=== PATIENT | male | born 1970 | race Caucasian/White ===

== ENCOUNTER 2017-06-22 00:51 | Emergency (ER) | payer MEDICARE ==
[2017-06-22 01:02] VITALS: BP 119/66; PULSE 87; RESP 18; TEMP 100.1
[2017-06-22] MEDS ORDERED: ACETAMINOPHEN TAB 500 MG TAB PO STA (01:40)
[2017-06-22] MEDS ORDERED: IBUPROFEN 600 MG TAB PO STA (01:40)
[2017-06-22 01:41] LABS: Appearance,Urine Clear (Clear); Bacteria,Urine Rare /hpf; Bilirubin,Urine Negative (Negative); Blood,Urine Negative (Negative); Color,Urine Light Yellow; Glucose,Urine (UA) Negative (Negative); Ketones,Urine Negative (Negative); Leukocyte Esterase,Urine Moderate (Negative); Nitrite,Urine Negative (Negative); Protein,Urine Negative (Negative); Specific Gravity,Urine 1.003 (1.001-1.035); Squamous Epithelial Cell,Urine <1 /hpf (0-4); Urobilinogen,Urine <2.0 mg/dL (<2.0); WBC,Urine 9 /hpf (0-5)
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
[2017-06-22] MEDS ORDERED: CIPROFLOXACIN HCL 250 MG TAB PO STA (01:55)
== END 2017-06-22 02:16 | disposition home or self-care (01) ==
LOC: EC 00:51
DX: N39.0 Urinary tract infection, site not specified (principal); R33.9 Retention of urine, unspecified; Z79.899 Other long term (current) drug therapy
CPT/HCPCS: 51702; 81001; 87077; 87086; 87186; 99284

== ENCOUNTER 2021-07-13 07:07 | Emergency (ER) | payer MEDICARE ==
[2021-07-13 07:22] VITALS: RESP 18
[2021-07-13] MEDS ORDERED: ACETAMINOPHEN TAB 500 MG TAB PO STA (07:33)
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
[2021-07-13 08:39] LABS: INR 1.1 (<1.2); Partial Thromboplastin Time 25.8 sec (22.0-30.0); Prothrombin Time 11.4 sec (9.0-12.0)
[2021-07-13 08:44] LABS: ALT 12 U/L (4-49); AST 22 U/L (17-59); African American GFR (CKD) >90 (>60 ml/min/1.73 sqM); Alkaline Phosphatase 79 U/L (38-126); Anion Gap 6 mmol/L; Blood Urea Nitrogen 19 mg/dL (9-20); Calcium 8.6 mg/dL (8.4-10.2); Carbon Dioxide 27 mmol/L (22-30); Chloride 103 mmol/L (98-107); Glucose 103 mg/dL (74-99); Non-African American GFR(CKD) >90 (>60 ml/min/1.73 sqM); Potassium 3.9 mmol/L (3.5-5.1); Sodium 136 mmol/L (137-145); Total Bilirubin 1.1 mg/dL (0.2-1.3); Total Protein 7.3 g/dL (6.3-8.2)
--- NOTE | 2021-07-13 08:54 | XR ---
EXAMINATION TYPE: XR chest 2V DATE OF EXAM: 07/13/2021 COMPARISON: NONE HISTORY: Shortness of breath and fever today. TECHNIQUE: Frontal and lateral views of the chest are obtained. FINDINGS: There is retrocardiac opacity. Right lung is clear. No significant pleural effusion or pn eumothorax seen bilaterally. The cardiac silhouette size is mildly enlarged. Surgical changes of the cervical spine is partially imaged. Lateral view shows suggestion of severe pectus excavatum deformit y. Correlate clinically. IMPRESSION: Mild cardiomegaly with posterior left lower lobe patchy acute infiltrate and/or atelecta sis.
[2021-07-13 09:12] LABS: Basophils # (A) 0.1 k/uL (0-0.2); Basophils % (A) 0 %; Eosinophils # (A) 0.2 k/uL (0-0.7); Eosinophils % (A) 1 %; HGB 14.2 gm/dL (13.0-17.5); Lymphocytes # (A) 0.7 k/uL (1.0-4.8); Lymphocytes % (A) 5 %; MCH 31.3 pg (25.0-35.0); MCHC 33.1 g/dL (31.0-37.0); MCV 94.7 fL (80.0-100.0); Mean Platelet Volume 10.1; Monocytes # (A) 0.4 k/uL (0-1.0); Monocytes % (A) 3 %; Neutrophils # (A) 11.8 k/uL (1.3-7.7); Neutrophils % (A) 90 %; Platelet Count 103 k/uL (150-450); RBC 4.54 m/uL (4.30-5.90); RDW 13.7 % (11.5-15.5); WBC 13.2 k/uL (3.8-10.6)
[2021-07-13] MEDS ORDERED: cefTRIAXone IN SWFI 1,000 MG/10 ML SYRINGE IVP STA ×2 (09:40→11:20)
[2021-07-13 09:49] VITALS: TEMP 98.6
[2021-07-13 10:50] LABS: Appearance,Urine Clear (Clear); Bilirubin,Urine Negative (Negative); Blood,Urine Negative (Negative); Color,Urine Yellow; Glucose,Urine (UA) Negative (Negative); Ketones,Urine Trace (Negative); Leukocyte Esterase,Urine Small (Negative); Mucus,Urine Few /hpf; Nitrite,Urine Negative (Negative); PH, Urine 5.5 (5.0-8.0); Protein,Urine Trace (Negative); RBC,Urine <1 /hpf (0-5); Specific Gravity,Urine 1.027 (1.001-1.035); Squamous Epithelial Cell,Urine 1 /hpf (0-4); Urobilinogen,Urine <2.0 mg/dL (<2.0); WBC,Urine 7 /hpf (0-5)
[2021-07-13 11:30] VITALS: BP 108/59; PULSE 72
== END 2021-07-13 11:53 | disposition home or self-care (01) ==
LOC: EC 07:07
DX: J18.9 Pneumonia, unspecified organism (principal); Z20.822 Contact with and (suspected) exposure to COVID-19
CPT/HCPCS: 36415; 93005; 85379; 83880; 80053; 83605; 84484; 85025; 85610; 85730; 81001; 87635; 71046; 99285; 96374; 96376; J0696

== ENCOUNTER 2021-11-11 13:32 | Emergency (ER) | payer MEDICARE ==
[2021-11-11 13:42] VITALS: BP 107/65; RESP 18
[2021-11-11] MEDS ORDERED: SODIUM CHLORIDE 0.9% 500 ML 500 ML IV STA (13:57)
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
[2021-11-11 14:22] LABS: Basophils % (A) 1 %; Eosinophils # (A) 0.4 k/uL (0-0.7); Eosinophils % (A) 7 %; HCT 45.6 % (39.0-53.0); HGB 15.5 gm/dL (13.0-17.5); Lymphocytes # (A) 1.2 k/uL (1.0-4.8); Lymphocytes % (A) 21 %; MCH 31.5 pg (25.0-35.0); MCHC 33.9 g/dL (31.0-37.0); MCV 92.7 fL (80.0-100.0); Mean Platelet Volume 10.2; Monocytes # (A) 0.4 k/uL (0-1.0); Monocytes % (A) 6 %; Neutrophils # (A) 3.7 k/uL (1.3-7.7); Neutrophils % (A) 64 %; RBC 4.92 m/uL (4.30-5.90); RDW 13.6 % (11.5-15.5); WBC 5.8 k/uL (3.8-10.6)
[2021-11-11 14:31] LABS: ALT 13 U/L (4-49); AST 44 U/L (17-59); African American GFR (CKD) >90 (>60 ml/min/1.73 sqM); Albumin 4.7 g/dL (3.5-5.0); Alkaline Phosphatase 67 U/L (38-126); Anion Gap 10 mmol/L; Blood Urea Nitrogen 13 mg/dL (9-20); Calcium 8.4 mg/dL (8.4-10.2); Carbon Dioxide 23 mmol/L (22-30); Chloride 101 mmol/L (98-107); Glucose 99 mg/dL (74-99); Non-African American GFR(CKD) >90 (>60 ml/min/1.73 sqM); Potassium 5.2 mmol/L (3.5-5.1); Sodium 134 mmol/L (137-145); Total Bilirubin 1.4 mg/dL (0.2-1.3)
[2021-11-11 15:37] LABS: Platelet Count 94 k/uL (150-450)
--- NOTE | 2021-11-11 16:16 | US ---
EXAMINATION TYPE: US kidneys/renal and bladder DATE OF EXAM: 11/11/2021 COMPARISON: NONE CLINICAL HISTORY: Urinary retention. Patient unable to void since last night. Patient was scanned in his motorized chair. Patient does self cath. EXAM MEASUREMENTS: Right Kidney: 9.5 x 4.6 x 4.4 cm Left Kidney: 9.9 x 4.2 x 5.3 cm Right Kidney: No hydronephrosis or masses seen Left Kidney: mild hydronephrosis seen Bladder: severely distended. Echogenic debris layering dependently without internal color Doppler fl ow areas seen within bladder Bilateral Jets not seen There is no evidence for hydronephrosis at this point in time. No nephrolithiasis is seen. No tea s are identified. IMPRESSION: 1. Distended urinary bladder with echogenic debris layering dependently. Correlate with urinalysis c onsider Berg catheterization. 2. Questionable left right hydronephrosis versus extrarenal pelvis.
[2021-11-11] MEDS ORDERED: ACETAMINOPHEN TAB 500 MG TAB PO STA (17:40)
[2021-11-11 18:24] LABS: Appearance,Urine Clear (Clear); Bacteria,Urine Occasional /hpf; Bilirubin,Urine Negative (Negative); Blood,Urine Negative (Negative); Color,Urine Light Yellow; Glucose,Urine (UA) Negative (Negative); Ketones,Urine Negative (Negative); Leukocyte Esterase,Urine Large (Negative); Mucus,Urine Rare /hpf; Nitrite,Urine Negative (Negative); PH, Urine 6.5 (5.0-8.0); Protein,Urine Negative (Negative); RBC,Urine 2 /hpf (0-5); Specific Gravity,Urine 1.013 (1.001-1.035); Squamous Epithelial Cell,Urine <1 /hpf (0-4); Urobilinogen,Urine <2.0 mg/dL (<2.0); WBC,Urine 25 /hpf (0-5)
[2021-11-11] MEDS ORDERED: CEPHALEXIN 500 MG CAP PO STA (18:41)
[2021-11-11 18:57] VITALS: PULSE 90; TEMP 98.7
== END 2021-11-11 18:56 | disposition home or self-care (01) ==
LOC: EC 13:32
DX: R33.9 Retention of urine, unspecified (principal)
CPT/HCPCS: 36415; 51701; 76770; 80053; 81001; 85025; 87077; 87086; 87186; 99283

== ENCOUNTER 2021-11-19 18:10 | Emergency (ER) | payer MEDICARE ==
[2021-11-19 18:26] VITALS: BP 101/61; PULSE 83; RESP 20; TEMP 98.7
--- NOTE | 2021-11-19 18:51 | ED ---
General Adult HPI - General Chief complaint: Recheck/Abnormal Lab/Rx Stated complaint: catheter problems Time Seen by Provider: 11/19/21 18:32 Source: patient, RN notes reviewed Mode of arrival: ambulatory Limitations: no limitations - History of Present Illness Initial comments: This is a pleasant 51-year-old male who presents emergency department complaining of urinary retention. Patient was seen here on the and treated for urinary retention. Patient was unable to self catheter. Subsequently had diagnostic workup done to include ultrasound. Patient had indwelling Berg catheter placed. Patient was placed on cephalexin which was switched to a different antibiotic the next day when the urine culture showed enterococcus faecalis. Patient has been taking the antibiotic appropriately. However he took the Berg catheter out this morning on his own accord. Patient states she has been unable to self cath since then. Patient has an appointment with Dr. Chambers on Saturday. No other current complaints other than pressure in the bladder area. No headache, no fever or chills, no changes in vision or hearing, no sore throat or difficulty with speech, no neck pain, no chest pain or shortness of breath, no abdominal pain, no nausea or vomiting, no changes inbowel movements, no numbness or tingling, no extremity pain, no skin rashes or lesions. - Related Data Home Medications Medication Instructions Recorded Confirmed Baclofen [Lioresal] 20 mg PO TID 11/21/15 06/22/17 Multivitamin [Men's Multi-Vitamin] 1 tab PO DAILY 11/21/15 06/22/17 Oxybutynin Chloride [Ditropan] 10 mg PO TID 11/21/15 06/22/17 Pregabalin [Lyrica] 100 mg PO BID 11/21/15 06/22/17 Sertraline [Zoloft] 100 mg PO BID 11/21/15 06/22/17 Previous Rx's Medication Instructions Recorded Ciprofloxacin HCl [Cipro] 500 mg PO Q12HR #20 tablet 11/21/15 Phenazopyridine HCl [Pyridium] 100 mg PO TID PRN #6 tab 11/21/15 Ciprofloxacin HCl [Cipro] 500 mg PO Q12HR 10 Days tab 06/22/17 Azithromycin [Zithromax Tri-Marcio] 500 mg PO DAILY #3 tab 07/13/21 Cephalexin [Keflex] 500 mg PO Q12HR 7 Days #14 cap 11/11/21 Allergies Allergy/AdvReac Type Severity Reaction Status Date / Time No Known Allergies Allergy Verified 11/19/21 18:26 Review of Systems ROS Statement: Those systems with pertinent positive or pertinent negative responses have been documented in the HPI. ROS Other: All systems not noted in ROS Statement are negative. 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 Vital signs reviewed. No distress. Limitations: no limitations General appearance: alert, in no apparent distress Head exam: Present: atraumatic, normocephalic, normal inspection Eye exam: Present: normal appearance, PERRL, EOMI. Absent: scleral icterus, conjunctival injection, periorbital swelling ENT exam: Present: normal exam, mucous membranes moist Neck exam: Present: normal inspection. Absent: tenderness, meningismus, lymphadenopathy Respiratory exam: Present: normal lung sounds bilaterally. Absent: respiratory distress, wheezes, rales, rhonchi, stridor Cardiovascular Exam: Present: regular rate, normal rhythm, normal heart sounds. Absent: systolic murmur, diastolic murmur, rubs, gallop, clicks GI/Abdominal exam: Present: soft, normal bowel sounds. Absent: distended, tenderness, guarding, rebound, rigid Extremities exam: Present: normal inspection. Absent: tenderness Back exam: Present: normal inspection Neurological exam: Present: alert, oriented X3, CN II-XII intact Psychiatric exam: Present: normal affect, normal mood Skin exam: Present: warm, dry, intact, normal color. Absent: rash Course Vital Signs 11/19/21 18:24 Temperature 98.7 F Pulse Rate 83 Respiratory 20 Rate Blood Pressure 101/61 O2 Sat by Pulse 96 Oximetry Medical Decision Making - Medical Decision Making Berg catheter be replaced. Patient does not appear to be ill or toxic otherwise. We'll have the patient follow-up with the urologist on Saturday as planned. Indwelling Berg catheter remain in place until then. The patient finish his antibiotics and follow-up with urologist on Saturday as planned. Patient concurs with this treatment plan. All questions answered. Patient was told to return to the ER for any signs or symptoms worsen. Told to return immediately if any other problems arise. All questions answered. Treatment plan discussed. Patient in agreement Every effort has been made to ensure accuracy of this dictation. However, due to the limitations of electronic medical records and dictation devices, errors in charting still occur. Field Foreman, Dr. Desai Disposition Clinical Impression: Urinary retention Narrative: History of chronic urinary retention with history of self-catheterization, currently on antibiotics for Enterococcus faecalis Disposition: HOME SELF-CARE Condition: Good Additional Instructions: The Berg catheter in until recheck with the urologist. Return to the ER immediately if any symptoms worsen, new symptoms arise, or any other problems develop. Is patient prescribed a controlled substance at d/c from ED?: No Referrals: Keon Chambers MD [STAFF PHYSICIAN] - 11/22/21 Time of Disposition: 19:41
== END 2021-11-19 20:00 | disposition home or self-care (01) ==
LOC: EC 18:10
DX: R33.9 Retention of urine, unspecified (principal)

== ENCOUNTER → 2022-05-02 | Outpatient (CLI) | payer MEDICARE ==
[2022-05-02 19:06] LABS: Basophils # (A) 0.06 X 10*3/uL (0.00-0.10); Basophils % (A) 1.2 %; Eosinophils # (A) 0.44 X 10*3/uL (0.04-0.35); Eosinophils % (A) 8.8 %; HCT 39.1 % (39.6-50.0); HGB 12.9 g/dL (13.0-17.0); Immature Grans, Automated 0.2 %; Lymphocytes # (A) 1.22 X 10*3/uL (0.90-5.00); Lymphocytes % (A) 24.5 %; MCH 30.6 pg (27.0-32.0); MCV 92.9 fL (80.0-97.0); Mean Platelet Volume 11.4 fL (9.5-12.2); Monocytes # (A) 0.32 X 10*3/uL (0.20-1.00); Monocytes % (A) 6.4 %; NRBC Per 100 WBC 0 /100 WBCS (0.0-0.0); Neutrophils # (A) 2.93 X 10*3/uL (1.80-7.70); Neutrophils % (A) 58.9 %; Platelet Count 131 X 10*3/uL (140-440); RBC 4.21 X 10*6/uL (4.40-5.60); RDW 13.2 % (11.5-14.5); WBC 4.98 X 10*3/uL (4.50-10.00)
[2022-05-02 19:36] LABS: African American GFR (CKD) 134.1 (60.0-200.0); BUN/Creat Ratio 16.11 Ratio (12.00-20.00); Calcium 8.7 mg/dL (8.7-10.3); Carbon Dioxide 26.2 mmol/L (20.0-27.5); Non-African American GFR(CKD) 115.7 (60.0-200.0); Potassium 4.8 mmol/L (3.5-5.5)
[2022-05-02 19:39] LABS: Appearance,Urine Cloudy (Clear); Bilirubin,Urine Negative (Negative); Blood,Urine Small (Negative); Color,Urine Yellow (Yellow); Ketones,Urine Negative (Negative); Nitrite,Urine Positive (Negative); PH, Urine 7.5 (5.0-8.0); Specific Gravity,Urine 1.013 (1.001-1.030); Urobilinogen,Urine 0.2 (0.2,1.0)
[2022-05-02 19:50] LABS: Bacteria,Urine 3+ /HPF (None Seen)
== END | disposition home or self-care (01) ==
LOC: LABPAT 13:51
PROVIDERS: ATTEND Urology
DX: Z01.812 Encounter for preprocedural laboratory examination (principal); N31.9 Neuromuscular dysfunction of bladder, unspecified; R33.9 Retention of urine, unspecified
CPT/HCPCS: 80048; 81001; 85025; 87086

== ENCOUNTER 2022-05-09 07:36 | Day surgery (SDC) | payer MEDICARE ==
--- NOTE | 2022-05-08 13:50 | P.GSHP ---
History of Present Illness H&P Date: 05/08/22 51 yo male with a ngb secondary to quadriplegia. He has been on cic for a while but it is becoming increasingly difficult He has a urethral barry that is much easier to maintain. We discussed contiuing with that versus a sp tube. He comes for an sp tube. - Constitutional Constitutional: Denies chills, Denies fever - EENT Eyes: denies blurred vision, denies pain Ears, nose, mouth and throat: Denies headache, Denies sore throat - Cardiovascular Cardiovascular: Denies chest pain, Denies shortness of breath - Respiratory Respiratory: Denies cough, Denies 7 - Gastrointestinal Gastrointestinal: Denies abdominal pain, Denies diarrhea, Denies nausea, Denies vomiting - Genitourinary (Female) Genitourinary: Denies dysuria, Denies hematuria - Genitourinary (Male) Genitourinary: Denies dysuria, Denies hematuria - Musculoskeletal Musculoskeletal: Denies myalgias - Integumentary Integumentary: Denies pruritus, Denies rash - Neurological Neurological: Denies numbness, Denies weakness - Psychiatric Psychiatric: Denies anxiety, Denies depression - Endocrine Endocrine: Denies fatigue, Denies weight change Past Medical History Past Medical History: No Reported History Additional Past Medical History / Comment(s): 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 trouble inserting catheter. History of Any Multi-Drug Resistant Organisms: None Reported Past Surgical History: Orthopedic Surgery Additional Past Surgical History / Comment(s): neck fusion , left humerus kristina insertion, charlene filter to prevent clots Past Anesthesia/Blood Transfusion Reactions: No Reported Reaction Smoking Status: Never smoker - Past Family History Father Family Medical History: No Reported History Mother Additional Family Medical History / Comment(s): non hodgkins lymphoma Medications and Allergies Home Medications Medication Instructions Recorded Confirmed Type Baclofen [Lioresal] 20 mg PO TID 11/21/15 05/07/22 History Multivitamin [Men's Multi-Vitamin] 1 tab PO DAILY 11/21/15 05/07/22 History Oxybutynin Chloride [Ditropan] 10 mg PO TID 11/21/15 05/07/22 History Pregabalin [Lyrica] 100 mg PO BID 11/21/15 05/07/22 History Sertraline [Zoloft] 100 mg PO BID 11/21/15 05/07/22 History Allergies Allergy/AdvReac Type Severity Reaction Status Date / Time No Known Allergies Allergy Verified 05/07/22 09:52 Surgical - Exam - General well developed, well nourished, no distress - Eyes PERRL - ENT no hearing loss - Neck no masses - Respiratory normal expansion, normal respiratory effort - Abdomen Abdomen: soft, non tender - Genitourinary indwellling urethral catheter - Neurologic wheel chair. Contractures and limited movement c/w c5-6 quadriplegia. - Psychiatric oriented to time, oriented to person, oriented to place, speech is normal, memory intact Assessment and Plan Assessment: Impresion: NGB, urine retention Plan: Cystoscopy with suprapubic cystostomy
[~2022-05-09 07:36] MED LIST: AMPICILLIN 1,000 MG in SODIUM CHLORIDE 0.9% 50 ML IVPB PRN; DEXAMETHASONE SOD PHOSPHATE 4 MG/ML 1 ML VIAL IV ONE; GENTAMICIN 120 MG in SODIUM CHLORIDE 0.9% 100 ML IVPB PRN; HYDROmorphone 0.5 MG/0.5 ML SYRINGE IVP PRN; LACTATED RINGERS 1,000 ML IV SCH; MIDAZOLAM 2 MG/2 ML VIAL IV PRN; ONDANSETRON 4 MG/2 ML VIAL IVP ONE; SCOPOLAMINE 1 MG/72 HR PATCH TRANSDERM ONE
[2022-05-09] MEDS ORDERED: ONDANSETRON 4 MG/2 ML VIAL IVP ONE (08:42)
[2022-05-09] MEDS ORDERED: DEXAMETHASONE SOD PHOSPHATE 4 MG/ML 1 ML VIAL IVP ONE (08:43)
[2022-05-09] MEDS ORDERED: fentaNYL (PF) 50 MCG/ML 2 ML AMP ONE (09:23)
[2022-05-09] MEDS ORDERED: LIDOCAINE 2% INJ 20 MG/ML (2 ML VIAL) ONE (09:23)
[2022-05-09] MEDS ORDERED: MIDAZOLAM 2 MG/2 ML VIAL ONE (09:23)
[2022-05-09] MEDS ORDERED: PROPOFOL 10 MG/ML 20 ML VIAL IV ONE (09:23)
[2022-05-09] MEDS ORDERED: LACTATED RINGERS 1,000 ML IV ONE (09:56)
--- NOTE | 2022-05-09 10:10 | P.OP ---
Date of Procedure: 05/09/22 Preoperative Diagnosis: Neurogenic bladder, urine retention, quadriplegia Postoperative Diagnosis: Same Procedure(s) Performed: Cystoscopy with suprapubic cystostomy Anesthesia: ROSETTA Surgeon: Keon Chambers Pathology: none sent Condition: stable Disposition: PACU Indications for Procedure: Patient is 51. He is a quadriplegic for many years. He has been on intermittent catheterization which is becoming increasingly difficult. He has an indwelling urethral catheter. We discussed options. The indwelling catheter is much more convenient for his quadriplegia. We discussed a suprapubic tube a. He come for this placement. Description of Procedure: Patient brought to the operating suite. He is given a general anesthesia. This urethral catheters removed. A curved notched 18-Telugu Deloris sound is introduced into the bladder. Is tented to the anterior bladder wall. A small incision is made in the suprapubic skin over the sound. I then cut down to the sound pop the sound through the bladder and anterior abdominal wall. I then place a 2-0 silk through the notch in the Deloris sound as well as through the Berg catheter. I tied this down. I then pull the notch sound through the urethra back through the urethral meatus and the urethral catheter follows the sound. I I removed the sound and slowly pulled the Berg catheter back into the bladder insufflated in the balloon in the bladder. This is done under direct vision with the cystoscope. The bladder irrigates freely. I secured the catheter with 2 2-0 silk's to the skin. It is dressed appropriately. I irrigate the catheter freely. Impression successful placement of suprapubic tube under cystoscopic guidance. The patient tolerated the procedure well. Blood loss was negligible
[2022-05-09 10:38] VITALS: TEMP 96.8
[2022-05-09 11:27] VITALS: PULSE 58
[2022-05-09 11:39] VITALS: BP 135/77; RESP 14
== END 2022-05-09 12:08 | disposition home or self-care (01) ==
LOC: OR 07:36
PROVIDERS: ATTEND Urology
DX: N31.9 Neuromuscular dysfunction of bladder, unspecified (principal); G82.50 Quadriplegia, unspecified; F12.90 Cannabis use, unspecified, uncomplicated; Z79.899 Other long term (current) drug therapy
CPT/HCPCS: 52281; C2627; J2250; J1100; J2405; J3010; J1580; J0290; J2704; J2001

== ENCOUNTER 2022-05-12 21:37 | Emergency (ER) | payer OTHER, MEDICARE ==
[2022-05-12 21:47] VITALS: TEMP 98.3
[2022-05-12] MEDS ORDERED: SODIUM CHLORIDE 0.9% 1,000 ML IV STA (22:17)
[2022-05-12] MEDS ORDERED: MORPHINE SULFATE 4 MG/ML SYRINGE IV STA (22:17)
--- NOTE | 2022-05-12 22:18 | ED ---
Abdominal Pain HPI - General Chief Complaint: Abdominal Pain Stated Complaint: Abdominal Pain Time Seen by Provider: 05/12/22 21:45 Source: patient, EMS Mode of arrival: EMS Limitations: physical limitation - History of Present Illness Initial Comments: 51-year-old male with past medical history of quadriplegia presents to the emergency room with right lower quadrant abdominal pain. He had a suprapubic catheter inserted on the seventh. States that he was doing well after surgery. Has not required any pain medication. Today the patient began having right lower quadrant abdominal pain. His last bowel movement was Saturday. He usually requires enemas. States that he has been doing enemas and has had a small amount of stool output however nothing significant. He has had adequate drainage in his Berg catheter without hematuria. No fevers. Pain is graded as a 7 out of 10. Denies any redness, swelling or discharge from the surgical site. No other alleviating, precipitating or modifying factors - Related Data Home Medications Medication Instructions Recorded Confirmed Baclofen [Lioresal] 20 mg PO TID 11/21/15 05/09/22 Multivitamin [Men's Multi-Vitamin] 1 tab PO DAILY 11/21/15 05/09/22 Oxybutynin Chloride [Ditropan] 10 mg PO TID 11/21/15 05/09/22 Pregabalin [Lyrica] 100 mg PO BID 11/21/15 05/09/22 Sertraline [Zoloft] 100 mg PO BID 11/21/15 05/09/22 Allergies Allergy/AdvReac Type Severity Reaction Status Date / Time sulfamethoxazole Allergy Rash/Hives Verified 05/12/22 21:46 [From Bactrim] trimethoprim [From Bactrim] Allergy Rash/Hives Verified 05/12/22 21:46 Review of Systems ROS Statement: Those systems with pertinent positive or pertinent negative responses have been documented in the HPI. ROS Other: All systems not noted in ROS Statement are negative. 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 trouble inserting catheter. History of Any Multi-Drug Resistant Organisms: None Reported Past Surgical History: Orthopedic Surgery Additional Past Surgical History / Comment(s): neck fusion, left humerus kristina insertion, charlene filter to prevent clots Past Anesthesia/Blood Transfusion Reactions: No Reported Reaction Past Psychological History: No Psychological Hx Reported Smoking Status: Never smoker Past Alcohol Use History: None Reported Past Drug Use History: None Reported - Past Family History Father Family Medical History: No Reported History Mother Additional Family Medical History / Comment(s): non hodgkins lymphoma General Exam Limitations: physical limitation General appearance: alert, in no apparent distress Head exam: Present: atraumatic, normocephalic, normal inspection Respiratory exam: Present: normal lung sounds bilaterally. Absent: respiratory distress, wheezes, rales, rhonchi, stridor Cardiovascular Exam: Present: regular rate, normal rhythm, normal heart sounds. Absent: systolic murmur, diastolic murmur, rubs, gallop, clicks GI/Abdominal exam: Present: tenderness (suprapubic and rlq. suprapubic catheter appears to be in appropriate position. no redness or drainage. abdomen soft) Extremities exam: Present: other (muscle atrophy bilateral lower extremities) Neurological exam: Present: alert Skin exam: Present: warm, dry, intact, normal color. Absent: rash Course Vital Signs 05/12/22 05/12/22 05/12/22 21:41 22:38 23:52 Temperature 98.3 F Pulse Rate 64 64 73 Respiratory 18 18 16 Rate Blood Pressure 115/75 124/75 120/66 O2 Sat by Pulse 95 96 97 Oximetry Medical Decision Making - Medical Decision Making Upon arrival patient was placed into room 10. A thorough history and physical exam was performed. IV access was established. Patient was given 4 mg of morphine for pain control and a liter bolus of normal saline. Laboratory studies are conducted and reviewed. Sodium low at 125. Urinalysis only has rare bacteria. CT the abdomen and pelvis is performed which demonstrates thickening of the bladder however no other acute process. Normal appendix. These results are discussed with the patient. I did discuss the low sodium level and recommended admission for overnight observation and sodium replacement. Patient reports that his pain is mostly gone at this time and would prefer to go home. I did discuss diagnosis, differential and treatment options. Patient will be discharged. Instructed to follow up with his primary care doctor for repeat sodium drop. Also needs to follow up with Dr. Santoyo as he is postop. Return to the emergency room for any new or worsening symptoms. Patient was agreeable to treatment plan he was discharged home in stable condition - Lab Data Result diagrams: 05/12/22 22:30 05/12/22 22:30 Lab Results 05/12/22 05/12/22 05/12/22 Range/Units 22:30 22:30 22:30 WBC 4.5 (3.8-10.6) k/uL RBC 4.05 L (4.30-5.90) m/uL Hgb 12.7 L (13.0-17.5) gm/dL Hct 35.5 L (39.0-53.0) % MCV 87.6 (80.0-100.0) fL MCH 31.3 (25.0-35.0) pg MCHC 35.8 (31.0-37.0) g/dL RDW 12.7 (11.5-15.5) % Plt Count 112 L (150-450) k/uL MPV 8.8 Neutrophils % 63 % Lymphocytes % 19 % Monocytes % 6 % Eosinophils % 8 % Basophils % 1 % Neutrophils # 2.9 (1.3-7.7) k/uL Lymphocytes # 0.9 L (1.0-4.8) k/uL Monocytes # 0.3 (0-1.0) k/uL Eosinophils # 0.4 (0-0.7) k/uL Basophils # 0.1 (0-0.2) k/uL Sodium 125 L (137-145) mmol/L Potassium 4.0 (3.5-5.1) mmol/L Chloride 96 L (98-107) mmol/L Carbon Dioxide 23 (22-30) mmol/L Anion Gap 6 mmol/L BUN 11 (9-20) mg/dL Creatinine 0.54 L (0.66-1.25) mg/dL Est GFR (CKD-EPI)AfAm >90 (>60 ml/min/1.73 sqM) Est GFR (CKD-EPI)NonAf >90 (>60 ml/min/1.73 sqM) Glucose 90 (74-99) mg/dL Plasma Lactic Acid Prince (0.7-2.0) mmol/L Calcium 8.0 L (8.4-10.2) mg/dL Total Bilirubin 1.0 (0.2-1.3) mg/dL AST 24 (17-59) U/L ALT 21 (4-49) U/L Alkaline Phosphatase 57 (38-126) U/L Total Protein 6.2 L (6.3-8.2) g/dL Albumin 3.6 (3.5-5.0) g/dL Lipase 28 (23-300) U/L Urine Color Yellow Urine Appearance Clear (Clear) Urine pH 5.5 (5.0-8.0) Ur Specific [place] 1.015 (1.001-1.035) Urine Protein Trace H (Negative) Urine Glucose (UA) Negative (Negative) Urine Ketones 2+ H (Negative) Urine Blood Moderate H (Negative) Urine Nitrite Negative (Negative) Urine Bilirubin Negative (Negative) Urine Urobilinogen <2.0 (<2.0) mg/dL Ur Leukocyte Esterase Moderate H (Negative) Urine RBC 3 (0-5) /hpf Urine WBC 6 H (0-5) /hpf Ur Squamous Epith Cells <1 (0-4) /hpf Urine Bacteria Rare H (None) /hpf Urine Mucus Rare H (None) /hpf 05/12/22 Range/Units 22:30 WBC (3.8-10.6) k/uL RBC (4.30-5.90) m/uL Hgb (13.0-17.5) gm/dL Hct (39.0-53.0) % MCV (80.0-100.0) fL MCH (25.0-35.0) pg MCHC (31.0-37.0) g/dL RDW (11.5-15.5) % Plt Count (150-450) k/uL MPV Neutrophils % % Lymphocytes % % Monocytes % % Eosinophils % % Basophils % % Neutrophils # (1.3-7.7) k/uL Lymphocytes # (1.0-4.8) k/uL Monocytes # (0-1.0) k/uL Eosinophils # (0-0.7) k/uL Basophils # (0-0.2) k/uL Sodium (137-145) mmol/L Potassium (3.5-5.1) mmol/L Chloride (98-107) mmol/L Carbon Dioxide (22-30) mmol/L Anion Gap mmol/L BUN (9-20) mg/dL Creatinine (0.66-1.25) mg/dL Est GFR (CKD-EPI)AfAm (>60 ml/min/1.73 sqM) Est GFR (CKD-EPI)NonAf (>60 ml/min/1.73 sqM) Glucose (74-99) mg/dL Plasma Lactic Acid [place] 1.2 (0.7-2.0) mmol/L Calcium (8.4-10.2) mg/dL Total Bilirubin (0.2-1.3) mg/dL AST (17-59) U/L ALT (4-49) U/L Alkaline Phosphatase (38-126) U/L Total Protein (6.3-8.2) g/dL Albumin (3.5-5.0) g/dL Lipase (23-300) U/L Urine Color Urine Appearance (Clear) Urine pH (5.0-8.0) Ur Specific [place] (1.001-1.035) Urine Protein (Negative) Urine Glucose (UA) (Negative) Urine Ketones (Negative) Urine Blood (Negative) Urine Nitrite (Negative) Urine Bilirubin (Negative) Urine Urobilinogen (<2.0) mg/dL Ur Leukocyte Esterase (Negative) Urine RBC (0-5) /hpf Urine WBC (0-5) /hpf Ur Squamous Epith Cells (0-4) /hpf Urine Bacteria (None) /hpf Urine Mucus (None) /hpf Disposition Clinical Impression: Abdominal pain Disposition: HOME SELF-CARE Condition: Stable Instructions (If sedation given, give patient instructions): Abdominal Pain (ED) Additional Instructions: Please alternate taking Motrin and Tylenol 4 hours for pain control. Follow up with your doctor and please return should you have any new or worsening symptoms. They should recheck your sodium level to ensure this has improved. Is patient prescribed a controlled substance at d/c from ED?: No Referrals: Rafi Castro Jr, [Primary Care Provider] - 1-2 days Time of Disposition: 00:38
[2022-05-12 22:43] LABS: Basophils # (A) 0.1 k/uL (0-0.2); Basophils % (A) 1 %; Eosinophils # (A) 0.4 k/uL (0-0.7); Eosinophils % (A) 8 %; HCT 35.5 % (39.0-53.0); HGB 12.7 gm/dL (13.0-17.5); Lymphocytes # (A) 0.9 k/uL (1.0-4.8); Lymphocytes % (A) 19 %; MCH 31.3 pg (25.0-35.0); MCHC 35.8 g/dL (31.0-37.0); MCV 87.6 fL (80.0-100.0); Mean Platelet Volume 8.8; Monocytes # (A) 0.3 k/uL (0-1.0); Monocytes % (A) 6 %; Neutrophils # (A) 2.9 k/uL (1.3-7.7); Neutrophils % (A) 63 %; Platelet Count 112 k/uL (150-450); RBC 4.05 m/uL (4.30-5.90); RDW 12.7 % (11.5-15.5); WBC 4.5 k/uL (3.8-10.6)
[2022-05-12 22:51] LABS: ALT 21 U/L (4-49); AST 24 U/L (17-59); African American GFR (CKD) >90 (>60 ml/min/1.73 sqM); Albumin 3.6 g/dL (3.5-5.0); Alkaline Phosphatase 57 U/L (38-126); Anion Gap 6 mmol/L; Blood Urea Nitrogen 11 mg/dL (9-20); Carbon Dioxide 23 mmol/L (22-30); Chloride 96 mmol/L (98-107); Glucose 90 mg/dL (74-99); Lipase 28 U/L (23-300); Non-African American GFR(CKD) >90 (>60 ml/min/1.73 sqM); Sodium 125 mmol/L (137-145); Total Protein 6.2 g/dL (6.3-8.2)
[2022-05-12 22:53] LABS: Appearance,Urine Clear (Clear); Bacteria,Urine Rare /hpf; Bilirubin,Urine Negative (Negative); Blood,Urine Moderate (Negative); Color,Urine Yellow; Glucose,Urine (UA) Negative (Negative); Ketones,Urine 2+ (Negative); Leukocyte Esterase,Urine Moderate (Negative); Mucus,Urine Rare /hpf; Nitrite,Urine Negative (Negative); PH, Urine 5.5 (5.0-8.0); Protein,Urine Trace (Negative); RBC,Urine 3 /hpf (0-5); Specific Gravity,Urine 1.015 (1.001-1.035); Squamous Epithelial Cell,Urine <1 /hpf (0-4); Urobilinogen,Urine <2.0 mg/dL (<2.0); WBC,Urine 6 /hpf (0-5)
[2022-05-12 23:52] VITALS: BP 120/66; PULSE 73; RESP 16
--- NOTE | 2022-05-13 00:12 | CT ---
EXAMINATION TYPE: CT abdomen pelvis w con DATE OF EXAM: 05/12/2022 COMPARISON: None HISTORY: RLQ PAIN CT DLP: 1214.2 mGycm Automated exposure control for dose reduction was used. CONTRAST: Performed with IV Contrast, patient injected with 100 mL of Isovue 300. Images obtained from the diaphragm to the floor of the pelvis with IV contrast. The lung bases show some patchy atelectasis. There is significant pectus excavatum chest deformity. H eart is deviated to the left side due to the pectus deformity. There is no pleural effusion. Liver spleen and stomach appear intact. The bile ducts are not dilated. There are small calcified gal lstones. There is no adrenal mass. Kidneys of normal size. No hydronephrosis. There is satisfactory contrast o pacification of the kidneys. Delayed images show normal renal excretion. There is inferior vena cava filter. There is no retroperitoneal adenopathy. There is suprapubic catheter. There is air in the uri nary bladder with irregular wall thickening. No inguinal hernia. No free fluid in the pelvis. No pelv ic mass. The appendix is medial and posterior and appears normal. There is no ascites or free air. There is no sign of a bowel obstruction. No mesenteric edema. The thoracic and lumbar vertebra. Intact. No compression fracture. The bony pelvis is intact. The hip joints are intact. IMPRESSION: There is some patchy atelectasis at the lung bases. Cholelithiasis. No dilated ducts. No evidence of renal mass or obstruction. Normal appendix. There is mild urinary bladder wall thickening that is suggestive of some degree of c ystitis.
== END 2022-05-13 00:54 | disposition home or self-care (01) ==
LOC: EC 21:37
DX: R10.9 Unspecified abdominal pain (principal); K80.20 Calculus of gallbladder without cholecystitis without obstruction; Z88.2 Allergy status to sulfonamides; Z88.1 Allergy status to other antibiotic agents
CPT/HCPCS: 36415; 80053; 83605; 83690; 85025; 81001; 74177; 99285; 96374; 96361; J2270; Q9967

== ENCOUNTER 2022-08-09 10:34 | Emergency (ER) | payer MEDICARE, OTHER ==
[2022-08-09 10:46] VITALS: RESP 18
[2022-08-09] MEDS ORDERED: SODIUM CHLORIDE 0.9% 500 ML 500 ML IV STA (10:58)
[2022-08-09 11:15] LABS: Basophils # (A) 0.1 k/uL (0-0.2); Basophils % (A) 1 %; Eosinophils # (A) 0.3 k/uL (0-0.7); Eosinophils % (A) 7 %; HCT 41.9 % (39.0-53.0); HGB 14.3 gm/dL (13.0-17.5); Lymphocytes % (A) 25 %; MCH 31.1 pg (25.0-35.0); MCV 91.4 fL (80.0-100.0); Monocytes # (A) 0.2 k/uL (0-1.0); Monocytes % (A) 5 %; Neutrophils # (A) 2.2 k/uL (1.3-7.7); Neutrophils % (A) 59 %; Platelet Count 134 k/uL (150-450); RBC 4.59 m/uL (4.30-5.90); RDW 12.8 % (11.5-15.5); WBC 3.7 k/uL (3.8-10.6)
[2022-08-09 11:28] LABS: Partial Thromboplastin Time 26.8 sec (22.0-30.0); Prothrombin Time 10.7 sec (9.0-12.0)
[2022-08-09 11:33] LABS: ALT 14 U/L (4-49); AST 19 U/L (17-59); African American GFR (CKD) >90 (>60 ml/min/1.73 sqM); Albumin 4.1 g/dL (3.5-5.0); Alkaline Phosphatase 83 U/L (38-126); Anion Gap 7 mmol/L; Blood Urea Nitrogen 15 mg/dL (9-20); Calcium 8.4 mg/dL (8.4-10.2); Carbon Dioxide 28 mmol/L (22-30); Chloride 99 mmol/L (98-107); Glucose 97 mg/dL (74-99); Non-African American GFR(CKD) >90 (>60 ml/min/1.73 sqM); Sodium 134 mmol/L (137-145); Total Bilirubin 0.6 mg/dL (0.2-1.3); Total Protein 6.7 g/dL (6.3-8.2)
--- NOTE | 2022-08-09 11:34 | XR ---
EXAMINATION TYPE: XR chest 2V DATE OF EXAM: 08/09/2022 COMPARISON: 07/13/2021 TECHNIQUE: PA and lateral views submitted. HISTORY: Shortness of breath FINDINGS: The lungs are clear and there is no pneumothorax, pleural effusion, or focal pneumonia. Heart size enlarged and no overt failure. Osseous structures intact. Hyperinflation suggestive of COPD. IVC filt er in the abdomen incidentally noted. Postsurgical changes Cervical spine. Correlate for pectus conge nital deformity. IMPRESSION: 1. COPD and cardiomegaly with no definite acute infiltrate or overt failure. .
--- NOTE | 2022-08-09 13:25 | ED ---
General Adult HPI - General Chief complaint: Shortness of Breath Stated complaint: sob Time Seen by Provider: 08/09/22 10:49 Source: patient, EMS, RN notes reviewed Mode of arrival: EMS Limitations: physical limitation - History of Present Illness Initial comments: 51-year-old male presents emergency department via EMS chief complaint shortness of breath. Patient states he had a large chronic congestion states he cannot move it and which she called EMS. EMS did write a DuoNeb treatment states he feels improved patient's found to be tachycardic at this time but denies any chest pain states he has some mild palpitations. Patient is known paraplegic wheelchair bound denies any prior cardiac lung disease. He states he is using an inhaler in the past which has helped. - Related Data Home Medications Medication Instructions Recorded Confirmed Baclofen [Lioresal] 20 mg PO TID 11/21/15 08/09/22 Multivitamin [Men's Multi-Vitamin] 1 tab PO DAILY 11/21/15 08/09/22 Oxybutynin Chloride [Ditropan] 10 mg PO TID 11/21/15 08/09/22 Pregabalin [Lyrica] 100 mg PO BID 11/21/15 08/09/22 Sertraline [Zoloft] 100 mg PO BID 11/21/15 08/09/22 Previous Rx's Medication Instructions Recorded Albuterol Nebulized [Ventolin 2.5 mg INHALATION Q4H PRN #75 ml 08/09/22 Nebulized] Allergies Allergy/AdvReac Type Severity Reaction Status Date / Time sulfamethoxazole Allergy Rash/Hives Verified 08/09/22 10:52 [From Bactrim] trimethoprim [From Bactrim] Allergy Rash/Hives Verified 08/09/22 10:52 Review of Systems ROS Statement: Those systems with pertinent positive or pertinent negative responses have been documented in the HPI. ROS Other: All systems not noted in ROS Statement are negative. 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 trouble inserting catheter. History of Any Multi-Drug Resistant Organisms: None Reported Past Surgical History: Orthopedic Surgery Additional Past Surgical History / Comment(s): neck fusion, left humerus kristina insertion, charlene filter to prevent clots Past Anesthesia/Blood Transfusion Reactions: No Reported Reaction Past Psychological History: No Psychological Hx Reported Smoking Status: Never smoker Past Alcohol Use History: None Reported Past Drug Use History: None Reported - Past Family History Father Family Medical History: No Reported History Mother Additional Family Medical History / Comment(s): non hodgkins lymphoma General Exam Limitations: no limitations, physical limitation General appearance: alert, in no apparent distress Head exam: Present: atraumatic, normocephalic, normal inspection Eye exam: Present: normal appearance, PERRL, EOMI. Absent: scleral icterus, conjunctival injection, periorbital swelling ENT exam: Present: normal exam, normal oropharynx, mucous membranes moist Neck exam: Present: normal inspection, full ROM. Absent: tenderness, meningismus, lymphadenopathy Respiratory exam: Present: normal lung sounds bilaterally. Absent: respiratory distress, wheezes, rales, rhonchi, stridor Cardiovascular Exam: Present: tachycardia, irregular rhythm, normal heart sounds. Absent: regular rate, normal rhythm, systolic murmur, diastolic murmur, rubs, gallop, clicks GI/Abdominal exam: Present: soft, normal bowel sounds. Absent: distended, tenderness, guarding, rebound, rigid Course Vital Signs 08/09/22 08/09/22 10:37 12:47 Pulse Rate 97 73 Respiratory 18 18 Rate Blood Pressure 101/64 116/66 O2 Sat by Pulse 91 L 94 L Oximetry EKG Findings - EKG Comments: EKG Findings:: EKG performed at 11:006 sinus rhythm rate of 89 AK 173 QRS 110 / QTC 386/432. EKG performed at 10:58 A. fib with RVR rate of 123 QRS 106 QT/QTC 334/407 - EKG Results: EKG: interpreted by [facility] Medical Decision Making - Medical Decision Making Was pt. sent in by a medical professional or institution (, PA, [employer], urgent care, hospital, or residential...) When possible be specific @ -No Did you speak to anyone other than the patient for history (EMS, parent, family, police, friend...)? What history was obtained from this source @ -EMS and family ride past medical history. Did you review nursing and triage notes (agree or disagree)? Why? @ -I reviewed and agree with nursing and triage notes Were old charts reviewed (outside hosp., previous admission, EMS record, old EKG, old radiological studies, urgent care reports/EKG's, residential records)? Report findings @ -No old charts were reviewed Differential Diagnosis (chest pain, altered mental status, abdominal pain women, abdominal pain men, vaginal bleeding, weakness, fever, dyspnea, syncope, headache, dizziness, GI bleed, back pain, seizure, CVA, palpatations, mental health, musculoskeletal)? @ -Differential Dyspnea: Coronary syndrome, arrhythmia, tamponade, asthma, COPD, pulmonary embolism, pneumonia, pneumothorax, pulmonary effusion, anaphylaxis, diabetic ketoacidosis, flailed chest, pulmonary contusion, diaphragmatic rupture, anemia, neuromuscul ar, this is not meant to be an all-inclusive list. e EKG interpreted by me (3pts min.). @ -As above X-rays interpreted by me (1pt min.). @ -Chest x-ray shows no evidence of pneumonia, possible COPD changes CT interpreted by me (1pt min.). @ -None done U/S interpreted by me (1pt. min.). @ -None done What testing was considered but not performed or refused? (CT, X-rays, U/S, labs)? Why? @ -None What meds were considered but not given or refused? Why? @ -None Did you discuss the management of the patient with other professionals (professionals i.e. , PA, [employer], lab, RT, psych nurse, school social worker, soda room operator, teacher, [employer] plans staff officer, case liner)? Give summary @ -Did discuss the case with cardiology do not recommend blood thinners as patient had an episode of defibrillation, resolved and he has no other risk factors. I did update currently primary care physician who recommended patient to be discharged with follow-up in office. Was smoking cessation discussed for >3mins.? @ -No Was critical care preformed (if so, how long)? @ -No Were there social determinants of health that impacted care today? How? (Homelessness, low income, unemployed, alcoholism, drug addiction, transportation, low edu. Level, literacy, decrease access to med. care, [facility], rehab)? @ -No Was there de-escalation of care discussed even if they declined (Discuss DNR or withdrawal of care, Hospice)? DNR status @ -No What co-morbidities impacted this encounter? (DM, HTN, Smoking, COPD, CAD, Cancer, CVA, ARF, Chemo, Hep., AIDS, mental health diagnosis, sleep apnea, morbid obesity)? @ -None Was patient admitted / discharged? Hospital course, mention meds given and route, prescriptions, significant lab abnormalities, going to OR and other pertinent info. @ -Charge patient had increasing congestion which is no ongoing better for the patient. Patient had an episode of facial fibrillation resolved I did discuss case cardiology and PCP patient is safe for discharge patient wants to be discharged was offered admission. Undiagnosed new problem with uncertain prognosis? @ -No Drug Therapy requiring intensive monitoring for toxicity (Heparin, Nitro, Insulin, Cardizem)? @ -No Were any procedures done? @ -No Diagnosis/symptom? @ -A. fib, Acute, or Chronic, or Acute on Chronic? @ -acute Uncomplicated (without systemic symptoms) or Complicated (systemic symptoms)? @ -Uncomplicated Side effects of treatment? @ -No Exacerbation, Progression, or Severe Exacerbation? @ -No Poses a threat to life or bodily function? How? (Chest pain, [place], [place], pneumonia, PE, COPD, DKA, ARF, appy, cholecystitis, CVA, Diverticulitis, Homicidal, Suicidal, threat to staff... and all critical care pts) @ -No Diagnosis/symptom? @ -Congestion Acute, or Chronic, or Acute on Chronic? @ -acute Uncomplicated (without systemic symptoms) or Complicated (systemic symptoms)? @ -uncomplicated Side effects of treatment? @ -none Exacerbation, Progression, or Severe Exacerbation] @ -no Poses a threat to life or bodily function? @ -no - Lab Data Result diagrams: 08/09/22 11:07 08/09/22 11:07 Lab Results 08/09/22 08/09/22 08/09/22 Range/Units 11:07 11:07 11:07 WBC 3.7 L (3.8-10.6) k/uL RBC 4.59 (4.30-5.90) m/uL Hgb 14.3 (13.0-17.5) gm/dL Hct 41.9 (39.0-53.0) % MCV 91.4 (80.0-100.0) fL MCH 31.1 (25.0-35.0) pg MCHC 34.0 (31.0-37.0) g/dL RDW 12.8 (11.5-15.5) % Plt Count 134 L (150-450) k/uL MPV 8.0 Neutrophils % 59 % Lymphocytes % 25 % Monocytes % 5 % Eosinophils % 7 % Basophils % 1 % Neutrophils # 2.2 (1.3-7.7) k/uL Lymphocytes # 1.0 (1.0-4.8) k/uL Monocytes # 0.2 (0-1.0) k/uL Eosinophils # 0.3 (0-0.7) k/uL Basophils # 0.1 (0-0.2) k/uL PT 10.7 (9.0-12.0) sec INR 1.0 (<1.2) APTT 26.8 (22.0-30.0) sec Sodium 134 L (137-145) mmol/L Potassium 4.0 (3.5-5.1) mmol/L Chloride 99 (98-107) mmol/L Carbon Dioxide 28 (22-30) mmol/L Anion Gap 7 mmol/L BUN 15 (9-20) mg/dL Creatinine 0.54 L (0.66-1.25) mg/dL Est GFR (CKD-EPI)AfAm >90 (>60 ml/min/1.73 sqM) Est GFR (CKD-EPI)NonAf >90 (>60 ml/min/1.73 sqM) Glucose 97 (74-99) mg/dL Calcium 8.4 (8.4-10.2) mg/dL Magnesium 2.0 (1.6-2.3) mg/dL Total Bilirubin 0.6 (0.2-1.3) mg/dL AST 19 (17-59) U/L ALT 14 (4-49) U/L Alkaline Phosphatase 83 (38-126) U/L Troponin I (0.000-0.034) ng/mL NT-Pro-B Natriuret Pep pg/mL Total Protein 6.7 (6.3-8.2) g/dL Albumin 4.1 (3.5-5.0) g/dL Influenza Type A (PCR) (Not Detectd) Influenza Type B (PCR) (Not Detectd) RSV (PCR) (Not Detectd) SARS-CoV-2 (PCR) (Not Detectd) 08/09/22 08/09/22 08/09/22 Range/Units 11:07 11:07 11:19 WBC (3.8-10.6) k/uL RBC (4.30-5.90) m/uL Hgb (13.0-17.5) gm/dL Hct (39.0-53.0) % MCV (80.0-100.0) fL MCH (25.0-35.0) pg MCHC (31.0-37.0) g/dL RDW (11.5-15.5) % Plt Count (150-450) k/uL MPV Neutrophils % % Lymphocytes % % Monocytes % % Eosinophils % % Basophils % % Neutrophils # (1.3-7.7) k/uL Lymphocytes # (1.0-4.8) k/uL Monocytes # (0-1.0) k/uL Eosinophils # (0-0.7) k/uL Basophils # (0-0.2) k/uL PT (9.0-12.0) sec INR (<1.2) APTT (22.0-30.0) sec Sodium (137-145) mmol/L Potassium (3.5-5.1) mmol/L Chloride (98-107) mmol/L Carbon Dioxide (22-30) mmol/L Anion Gap mmol/L BUN (9-20) mg/dL Creatinine (0.66-1.25) mg/dL Est GFR (CKD-EPI)AfAm (>60 ml/min/1.73 sqM) Est GFR (CKD-EPI)NonAf (>60 ml/min/1.73 sqM) Glucose (74-99) mg/dL Calcium (8.4-10.2) mg/dL Magnesium (1.6-2.3) mg/dL Total Bilirubin (0.2-1.3) mg/dL AST (17-59) U/L ALT (4-49) U/L Alkaline Phosphatase (38-126) U/L Troponin I <0.012 (0.000-0.034) ng/mL NT-Pro-B Natriuret Pep 174 pg/mL Total Protein (6.3-8.2) g/dL Albumin (3.5-5.0) g/dL Influenza Type A (PCR) Not Detected (Not Detectd) Influenza Type B (PCR) Not Detected (Not Detectd) RSV (PCR) Not Detected (Not Detectd) SARS-CoV-2 (PCR) Not Detected (Not Detectd) Disposition Clinical Impression: Dyspnea, Paroxysmal A-fib Disposition: HOME SELF-CARE Condition: Stable Instructions (If sedation given, give patient instructions): A-fib (Atrial Fibrillation) (ED) Additional Instructions: Please return to the Emergency Department if symptoms worsen or any other concerns. Prescriptions: Albuterol Nebulized [Ventolin Nebulized] 2.5 mg INHALATION Q4H PRN #75 ml PRN Reason: difficulty in breathing Is patient prescribed a controlled substance at d/c from ED?: No Referrals: Rafi Castro Jr, [Primary Care Provider] - 1-2 days Time of Disposition: 13:17
[2022-08-09 13:53] VITALS: BP 118/67; PULSE 82; TEMP 98.2
== END 2022-08-09 13:53 | disposition home or self-care (01) ==
LOC: EC 10:34
DX: I48.0 Paroxysmal atrial fibrillation (principal); Z20.822 Contact with and (suspected) exposure to COVID-19; Z88.1 Allergy status to other antibiotic agents; Z88.2 Allergy status to sulfonamides; Z99.3 Dependence on wheelchair
CPT/HCPCS: 36415; 71046; 80053; 83735; 83880; 84484; 85025; 85610; 85730; 87636; 93005; 99285

== ENCOUNTER → 2024-05-15 | Outpatient (CLI) | payer MEDICARE ==
--- NOTE | 2024-05-15 15:41 | XR ---
EXAMINATION TYPE: XR KUB DATE OF EXAM: 05/15/2024 2:28 PM COMPARISON: 11/21/2015 CLINICAL INDICATION: Male, 53 years old with history of R39.9SYMPTOMS AND SIGNS INVOLVING THE GENIT,R 10.84; [facility] TECHNIQUE: One radiographic view of the abdomen was obtained. FINDINGS: The bowel gas pattern is nonspecific without dilated loops of small or large bowel. . Fecal material and gas are demonstrated throughout the colon and rectum. There is no evidence for organome brian or pneumoperitoneum. The osseous structures are intact. Pelvic phleboliths are present. Moder ate to severe left hip osteoporosis. IVC filter present. IMPRESSION: 1. No renal calculi definitively visualized. 2. Nonspecific bowel gas pattern without radiographic evidence for acute process. [facility] Perez, , 05/15/2024 3:38 PM
[2024-05-15 18:19] LABS: ALT 7 U/L (10-49); AST 15 U/L (14-35); Albumin 4.3 g/dL (3.8-4.9); Albumin/Globulin Ratio 1.72 Ratio (1.60-3.17); Alkaline Phosphatase 76 U/L (41-126); Blood Urea Nitrogen 5.4 mg/dL (9.0-27.0); Calcium 8.8 mg/dL (8.7-10.3); Carbon Dioxide 28.9 mmol/L (21.6-31.8); Chloride 94 mmol/L (96-109); Globulin 2.5 g/dL (1.6-3.3); Glucose 103 mg/dL (70-110); Potassium 4.2 mmol/L (3.5-5.5); Sodium 131 mmol/L (135-145); Total Bilirubin 0.7 mg/dL (0.3-1.2); Total Protein 6.8 g/dL (6.2-8.2)
[2024-05-15 18:30] LABS: Basophils # (A) 0.06 X 10*3/uL (0.00-0.10); Basophils % (A) 1.5 %; Eosinophils # (A) 0.47 X 10*3/uL (0.04-0.35); Eosinophils % (A) 11.8 %; HCT 41.9 % (39.6-50.0); HGB 14.4 g/dL (13.0-17.0); Immature Grans, Automated 0 %; Lymphocytes # (A) 0.71 X 10*3/uL (0.90-5.00); Lymphocytes % (A) 17.9 %; MCH 30.3 pg (27.0-32.0); MCHC 34.4 g/dL (32.0-37.0); Mean Platelet Volume 10.5 FL (9.5-12.2); Monocytes # (A) 0.28 X 10*3/uL (0.20-1.00); Monocytes % (A) 7.1 %; NRBC Per 100 WBC 0 X 10*3/uL (0.00-0.01); Neutrophils # (A) 2.45 X 10*3/uL (1.80-7.70); Neutrophils % (A) 61.7 %; Platelet Count 163 X 10*3/uL (140-440); RBC 4.76 X 10*6/uL (4.40-5.60); WBC 3.97 X 10*3/uL (4.50-10.00)
== END | disposition home or self-care (01) ==
LOC: LABWHC1 13:47
PROVIDERS: ATTEND Family Medicine
DX: R39.9 Unspecified symptoms and signs involving the genitourinary system (principal); R10.84 Generalized abdominal pain
CPT/HCPCS: 36415; 74018; 80053; 85025; 87077; 87086; 87186

== ENCOUNTER → 2024-08-19 | Outpatient (CLI) | payer MEDICARE ==
--- NOTE | 2024-08-19 23:41 | CT ---
EXAMINATION TYPE: CT abdomen pelvis wo con DATE OF EXAM: 08/19/2024 3:53 PM COMPARISON: CT abdomen pelvis most recent from 05/12/2022 CLINICAL INDICATION: Male, 53 years old with history of KSP; N20.0 Kidney stone; R31.0 Gross Hematuri a; hematuria TECHNIQUE: Axial CT abdomen pelvis wo con;Sagittal and coronal reformats were created on a separate workstation. Contrast used: mL of , (none if empty) Oral contrast used: without Oral Contrast (none if empty) CT DLP: 342.6 mGycm, Automated exposure control for dose reduction was used. FINDINGS: LOWER CHEST: Severe pectus excavatum noted with leftward shift heart ABDOMEN LIVER: Unremarkable GALLBLADDER AND BILE DUCTS: Layering increased densities within the lumen consistent with gallstones are present. PANCREAS: Unremarkable. SPLEEN: Unremarkable. ADRENAL GLANDS: Unremarkable. KIDNEYS AND URETERS: No evidence of hydronephrosis or renal calculus. The ureters are unremarkable. PELVIS BLADDER: Nondistended with suprapubic Berg catheter in place. Mild wall thickening gas noted. There is mild fat stranding around the nondistended bladder. REPRODUCTIVE: Unremarkable. ABDOMEN & PELVIS STOMACH AND BOWEL: No evidence of bowel obstruction. The appendix is normal. Large stool in the right colon. PERITONEUM/RETROPERITONEUM: No evidence of pneumoperitoneum or free fluid. VASCULATURE: No evidence of aortic aneurysm. IVC filter in place. MUSCULOSKELETAL: No acute osseous abnormalities LYMPH NODES: No gross evidence for lymphadenopathy. SOFT TISSUE/ABDOMINAL WALL: Unremarkable IMPRESSION: 1. Suprapubic Berg catheter in place with nondistention bladder correlate for signs and symptoms of infection. No evidence for obstructive uropathy or renal calculus. 2. Cholelithiasis. 3. Severe pectus excavatum noted with leftward shift heart [facility] Perez, , 08/19/2024 11:38 PM
== END | disposition home or self-care (01) ==
LOC: RADCTMAIN 15:19
PROVIDERS: ATTEND Urology
DX: N20.0 Calculus of kidney (principal); K80.20 Calculus of gallbladder without cholecystitis without obstruction; Q67.6 Pectus excavatum; R31.0 Gross hematuria; Z96.0 Presence of urogenital implants
CPT/HCPCS: 74176